=== PATIENT | male | born 1955 | race Caucasian/White ===

== ENCOUNTER → 2022-08-04 | Outpatient (REF) | payer MEDICARE ==
[~2022-08-04] MED LIST: COLA100C5 PO; IBUP200T46 PO; LEVO1TAB40 PO; MIRA1POW3 PO; ONDA4TAB6 PO; PERCOCET PO; TAMS1CAP17 PO
== END ==
LOC: M SMT 16:48
PROVIDERS: ATTEND Urology
DX: N49.2 Inflammatory disorders of scrotum (principal)